=== PATIENT | male | born 1985 | race Two or more races ===

== ENCOUNTER 2016-06-11 08:04 | Emergency (ER) | payer BC ==
[2016-06-11 08:16] VITALS: BP 95/48
--- NOTE | 2016-06-11 08:34 | UC ---
Respiratory Complaint HPI - HPI Summary HPI Summary: ONSET OF FEVER, BODY ACHES (MOSTLY IN NECK AND BACK), STINSON AND FATIGUE LAST NIGHT. MILD COUGH AND ST. - History of Current Complaint Chief Complaint: UCGeneralIllness Stated Complaint: URI Time Seen by Provider: 06/11/16 08:24 Hx Obtained From: Patient Onset/Duration: Gradual Onset, Lasting Hours, Still Present Timing: Constant Severity Initially: Moderate Severity Currently: Moderate Pain Intensity: 7 Pain Scale Used: 0-10 Numeric Character: Cough: Nonproductive - MILD Aggravating Factors: Nothing Alleviating Factors: Nothing Associated Signs And Symptoms: Positive: Fever, Chills. Negative: Dyspnea, Pleuritic Chest Pain, Wheezing, Hemoptysis, Dizziness, Calf Pain, Calf Swelling - Allergies/Home Medications Allergies/Adverse Reactions: Allergies Allergy/AdvReac Type Severity Reaction Status Date / Time No Known Allergies Allergy Verified 07/20/15 20:47 Home Medications: Home Medications Guanfacine HCl (Adhd) [Guanfacine ER] 1 mg PO BEDTIME 06/11/16 [History Confirmed 06/11/16] LORazepam TAB(*) [Ativan 1 MG TAB (*)] 1 mg PO BEDTIME 06/11/16 [History Confirmed 06/11/16] PMH/Surg Hx/FS Hx/Imm Hx Endocrine History Of: Denies: Diabetes, Thyroid Disease, Hyperthyroidism, Hypothyroidism, Dyslipidemia Cardiovascular History Of: Denies: Cardiac Disorders, Hypertension, Pacemaker/ICD, Myocardial Infarction , Congestive Heart Failure, Atrial Fibrillation, Deep Vein Thrombosis, Bleeding Disorders Respiratory History Of: Reports: Asthma - in high school Denies: COPD, Bronchitis, Pneumonia, Pulmonary Embolism GI/ History Of: Denies: Gastroesophageal Reflux, Ulcer, Gastrointestinal Bleed, Gall Bladder Disease, Kidney Stones, Diverticulitis, Renal Disease, Urosepsis Neurological History Of: Denies: TIA, CVA, Dementia, Seizures, Migraine Psychological History Of: Reports: Anxiety Denies: Depression, Bipolar Disorder, Schizophrenia, Post Traumatic Stress Disorder Cancer History Of: Denies: Lung Cancer, Colorectal Cancer, Breast Cancer, Prostate Cancer, Cervical Cancer Other History Of: Negative For: HIV, Hepatitis B, Hepatitis C - Surgical History Surgical History: Yes Surgery Procedure, Year, and Place: wisdom teeth extraction - Family History Known Family History: Positive: Cardiac Disease - Social History Alcohol Use: None Substance Use Type: None Smoking Status (MU): Never Smoked Tobacco Review of Systems Constitutional: Fever, Chills, Fatigue ENT: Sore Throat, Ear Ache Respiratory: Cough Cardiovascular: Negative Gastrointestinal: Negative Musculoskeletal: Myalgia Neurological: Headache All Other Systems Reviewed And Are Negative: Yes Physical Exam Triage Information Reviewed: Yes Appearance: No Pain Distress, Well-Nourished, Ill-Appearing - MILD Vital Signs: Initial Vital Signs Temp 98.3 F 06/11/16 08:09 Pulse 75 06/11/16 08:09 Resp 18 06/11/16 08:09 BP 95/48 06/11/16 08:09 Pulse Ox 95 06/11/16 08:09 Vital Signs Reviewed: Yes Eyes: Positive: Conjunctiva Clear ENT: Positive: Hearing grossly normal, Pharyngeal erythema, TMs normal, Tonsillar exudate. Negative: Tonsillar swelling Neck: Positive: Supple, Nontender, No Lymphadenopathy Respiratory Exam: Normal Cardiovascular Exam: Normal Abdomen Description: Positive: Nontender, Soft Musculoskeletal: Positive: No Edema Neurological: Positive: Alert, Other: - NEG BRUDZINSKI, NEG KERNIG Psychological: Positive: Age Appropriate Behavior Skin: Negative: rashes UC Diagnostic Evaluation - Laboratory O2 Sat by Pulse Oximetry: 95 Diagnostic Studies Comment: RAPID STREP NEGATIVE. RAPID FLU NEGATIVE Respiratory Course/Dx - Differential Dx/Diagnosis Provider Diagnoses: ACUTE VIRAL SYNDROME Discharge - Discharge Plan Condition: Stable Disposition: HOME Patient Education Materials: Viral Syndrome (ED) Referrals: Russ Sarabia MD [Primary Care Provider] - If Needed Additional Instructions: RAPID STREP NEGATIVE. RAPID FLU NEGATIVE. CONSERVATIVE MANAGEMENT. REST, HYDRATE , OTC MEDS NEEDED. IBUPROFEN MAX DOSE: 600MG (3 TABS) EVERY 6 HRS OR 800MG (4 TABS) EVERY 8 HRS OR NAPROXEN MAX DOSE: 440MG (2 TABS) EVERY 12 HRS TYLENOL MAX DOSE: 1000MG (2 EXTRA STRENGTH TABS) EVERY 8 HRS FOLLOW-UP HERE OR WITH PCP IF NOT IMPROVING EXPECTED OVER THE NEXT WEEK OR SO.
== END 2016-06-11 09:06 | disposition home or self-care (01) ==
LOC: UCEAST 08:04
DX: B34.9 Viral infection, unspecified (principal); J45.909 Unspecified asthma, uncomplicated; F41.9 Anxiety disorder, unspecified
CPT/HCPCS: 87502; 87651; 99211; G0463

== ENCOUNTER 2017-02-18 10:59 | Day surgery (SDC) | payer BC ==
[~2017-02-18 10:59] MED LIST: Buffered Lidocaine 0.9% SYRIN* 5 ML/SYR SYRINGE INTRADERM ONE; Famotidine IV* 10 MG/ML 2 ML (20 mg) IV ONE
[2017-02-18] MEDS ORDERED: Famotidine IV* 10 MG/ML 2 ML (20 mg) ONE (11:10)
[2017-02-18] MEDS ORDERED: Buffered Lidocaine 0.9% SYRIN* 5 ML/SYR SYRINGE ONE (11:10)
[2017-02-18] MEDS ORDERED: Lidocaine 2% PF * 5 ML VIAL ONE (12:49)
[2017-02-18] MEDS ORDERED: Dexamethasone IV* 4 MG/ML 1 ML (4 MG) ONE (12:49)
[2017-02-18] MEDS ORDERED: Propofol* 10 MG/ML 20 ML BTL IV PUSH ONE (12:49)
[2017-02-18] MEDS ORDERED: Ondansetron INJ* 2 MG/ML VIAL ONE (12:49)
[2017-02-18] MEDS ORDERED: Midazolam* 1 MG/ML 10 ML VIAL (10 MG) ONE (12:50)
[2017-02-18] MEDS ORDERED: fentaNYL* 50 MCG/ML 2 ML VIAL (100 MCG VIAL) ONE (12:50)
[2017-02-18] MEDS ORDERED: Ondansetron INJ* 2 MG/ML VIAL IV PRN (14:07)
[2017-02-18] MEDS ORDERED: fentaNYL* 50 MCG/ML 2 ML VIAL (100 MCG VIAL) IV PRN (14:07)
[2017-02-18 14:33] VITALS: BP 136/85
--- NOTE | 2017-02-19 | OP ---
DATE OF OPERATION: 02/18/17 - SDS DATE OF : 83 SURGEON: Sav Tinsley MD ANESTHESIOLOGIST: Washington Nuñez MD ANESTHESIA: General PRE-OP DIAGNOSIS: Chronic tonsillitis. POST-OP DIAGNOSIS: Chronic tonsillitis. OPERATIVE PROCEDURE: Tonsillectomy under general endotracheal anesthesia. COMPLICATIONS: None. DISPOSITION: Good. SPECIMENS: Left and right tonsils. BLOOD LOSS: Minimal. DESCRIPTION OF PROCEDURE: The patient was taken to the operating room, placed in the supine position on the operating room table. General anesthesia was induced and she was orotracheally intubated, turned and draped for the tonsillectomy. Shalini-Moy mouth gag was inserted, retraction was applied, it was suspended from the Booker stand. Right tonsil was grasped, manual traction was applied. Using Bovie cautery, it was dissected along its capsule, removing it from the underlying pharyngeal musculature. Left tonsil was grasped, manual traction was applied. Again using Bovie cautery, it was dissected along its capsule, removing it from the underlying pharyngeal musculature. When both tonsils were removed, hemostasis was ensured in both tonsillar fossae using suction cautery. After this was achieved, orogastric tube was inserted into the stomach and stomach contents were suctioned. Shalini-Moy mouth gag and red rubber catheter were released and removed. The patient tolerated this procedure well, no complications, transferred to the recovery room in stable condition. [id number]/CPS #: [id number] MTDD
== END 2017-02-18 15:29 | disposition home or self-care (01) ==
LOC: OR 10:59
PROVIDERS: ATTEND Otolaryngology
DX: J03.01 Acute recurrent streptococcal tonsillitis (principal); G47.00 Insomnia, unspecified; F95.9 Tic disorder, unspecified
CPT/HCPCS: 88304; J1100; J2250; J2405; J2704; J3010

== ENCOUNTER 2018-07-14 17:02 | Emergency (ER) | payer BC ==
[2018-07-14 17:58] VITALS: BP 127/77
--- NOTE | 2018-07-14 18:26 | UC ---
Nausea/Vomiting/Diarrhea HPI - HPI Summary HPI Summary: 32-year-old male comes in with a chief complaint of nausea diarrhea abdominal pain and headache. Patient woke this morning with several episodes of diarrhea that's all watery. Has not seen any blood in the diarrhea. He also is nauseous is also vomited a couple times but he has not vomited. He has been able to keep some liquids down. No recent antibiotics. Later on during the day started developing diffuse abdominal pain had a headache. He's had some chills. No fever measured. - History of Current Complaint Chief Complaint: UCGI Stated Complaint: FLU LIKE SYMPTOMS Time Seen by Provider: 07/14/18 18:05 Pain Intensity: 5 - Allergies/Home Medications Allergies/Adverse Reactions: Allergies Allergy/AdvReac Type Severity Reaction Status Date / Time No Known Allergies Allergy Verified 07/14/18 17:58 Home Medications: Home Medications Kavinace Ultra Pm 1 tab PO BEDTIME 07/14/18 [History Confirmed 07/14/18] PMH/Surg Hx/FS Hx/Imm Hx Previously Healthy: Yes Other History Of: Negative For: HIV, Hepatitis B, Hepatitis C - Surgical History Surgical History: None Surgery Procedure, Year, and Place: [place] teeth extraction age 15 - [place] - Family History Known Family History: Positive: Cardiac Disease - Social History Alcohol Use: None Substance Use Type: Marijuana Substance Use Comment - Amount & Last Used: not in the last month Smoking Status (MU): Heavy Every Day Tobacco Smoker Type: Smokeless Tobacco Amount Used/How Often: 1 pouch per day Length of Time of Smoking/Using Tobacco: since age 17 Have You Smoked in the Last Year: No Review of Systems All Other Systems Reviewed And Are Negative: Yes Constitutional: Positive: Chills Skin: Positive: Negative Eyes: Positive: Negative ENT: Positive: Negative Respiratory: Positive: Negative Cardiovascular: Positive: Negative Gastrointestinal: Positive: Abdominal Pain, Diarrhea, Nausea Motor: Positive: Negative Neurovascular: Positive: Negative Musculoskeletal: Positive: Myalgia Neurological: Positive: Headache Psychological: Positive: Negative Is Patient Immunocompromised?: No Physical Exam Triage Information Reviewed: Yes Appearance: No Pain Distress, Well-Nourished, Ill-Appearing - mild Vital Signs: Initial Vital Signs Temp 98.2 F 07/14/18 17:53 Pulse 78 07/14/18 17:53 Resp 15 07/14/18 17:53 BP 127/77 07/14/18 17:53 Pulse Ox 100 07/14/18 17:53 Vital Signs Reviewed: Yes Eye Exam: Normal Eyes: Positive: Conjunctiva Clear Neck: Positive: Supple Respiratory: Positive: Lungs clear, Normal breath sounds, No respiratory distress Cardiovascular: Positive: RRR Abdomen Description: Positive: Soft, Other: - diffuse mild tenderness to palpation Bowel Sounds: Positive: Present Musculoskeletal Exam: Normal Musculoskeletal: Positive: Strength Intact, ROM Intact Neurological Exam: Normal Neurological: Positive: Alert, Muscle Tone Normal Psychological Exam: Normal Psychological: Positive: Age Appropriate Behavior Skin Exam: Normal Naus/Vom/Diarrhea Course/Dx - Course Course Of Treatment: Patient's abdomen is mildly diffusely tender to palpation. No focal area of tenderness. Positive bowel sounds. Patient's nauseous but has not vomited. Denies any blood in the stool. No fever here in clinic. No recent antibiotics. At this time symptomatic treatment with Zofran for nausea and work on staying hydrated. Rest. Stool sample kit sent home with the patient. I talked to the patient if things got worse he needs go the emergency department for further evaluation care. - Differential Dx/Diagnosis Provider Diagnosis: Nausea, Diarrhea, Abdominal pain, Headache Condition At Discharge: Stable Discharge - Sign-Out/Discharge Documenting (check all that apply): Patient Departure All imaging exams completed and their final reports reviewed: No Studies - Discharge Plan Condition: Stable Disposition: HOME Prescriptions: Ondansetron ODT TAB* [Zofran 4 MG Odt TAB*] 4 mg PO Q6H PRN #15 tab.odt PRN Reason: Nausea Patient Education Materials: Acute Headache (ED), Acute Nausea and Vomiting (ED ), Acute Diarrhea (ED), Abdominal Pain (ED) Forms: *Work Release Referrals: Russ Sarabia MD [Primary Care Provider] - Additional Instructions: FOLLOW UP WITH YOUR DOCTOR IF NOT COMPLETELY IMPROVED. GO TO THE EMERGENCY DEPARTMENT IF YOUR CONDITION WORSENS; PAIN, FEVER, YOU FEEL ILL, BLOOD IN YOUR STOOL, YOU FEEL LIKE PASSING OUT OR ANY QUESTIONS OR CONCERNS. - Billing Disposition and Condition Condition: STABLE Disposition: Home
== END 2018-07-14 18:38 | disposition home or self-care (01) ==
LOC: UCCORT 17:02
DX: R19.7 Diarrhea, unspecified (principal); R11.0 Nausea; R51 Headache; R10.9 Unspecified abdominal pain; F17.290 Nicotine dependence, other tobacco product, uncomplicated
CPT/HCPCS: 99212; G0463

== ENCOUNTER 2019-03-21 12:25 | Emergency (ER) | payer BC, OTHER ==
[2019-03-21 13:21] VITALS: BP 158/69
--- NOTE | 2019-03-21 14:06 | UC ---
FLU HPI - HPI Summary HPI Summary: 33-year-old male presents with complaints of sudden onset of general malaise, body aches, nasal congestion, sinus pressure, and a nonproductive cough. No measured fever however has had chills. Did not receive his flu vaccination this season. Denies ear pain, sore throat, chest pain, palpitations, shortness of breath, abdominal pain, nausea, or vomiting. - History of Current Complaint Chief Complaint: UCRespiratory Stated Complaint: SINUS CONCERN Time Seen by Provider: 03/21/19 13:54 Hx Obtained From: Patient Pain Intensity: 0 - Allergy/Home Medications Allergies/Adverse Reactions: Allergies Allergy/AdvReac Type Severity Reaction Status Date / Time No Known Allergies Allergy Verified 01/03/19 13:47 Home Medications: Home Medications Melatonin 3 mg PO DAILY 03/21/19 [History Confirmed 03/21/19] PMH/Surg Hx/FS Hx/Imm Hx Previously Healthy: Yes - Denies significant PMH Other History Of: Negative For: HIV, Hepatitis B, Hepatitis C - Surgical History Surgical History: None Surgery Procedure, Year, and Place: [facility] teeth extraction age 15 - [facility]. 02/19/2018 TONSILS REMOVED - Family History Known Family History: Positive: Cardiac Disease - Social History Occupation: Employed Full-time Lives: Alone Alcohol Use: None Substance Use Type: Marijuana Substance Use Comment - Amount & Last Used: not in the last month Smoking Status (MU): Heavy Every Day Tobacco Smoker Type: Smokeless Tobacco Amount Used/How Often: 1 pouch per day Length of Time of Smoking/Using Tobacco: since age 17 Have You Smoked in the Last Year: No Review of Systems All Other Systems Reviewed And Are Negative: Yes Constitutional: Positive: Fever, Chills, Fatigue Eyes: Negative: Drainage, Eye Redness ENT: Positive: Nasal Discharge, Sinus Congestion. Negative: Sore Throat, Ear Ache Respiratory: Positive: Cough. Negative: Shortness Of Breath Cardiovascular: Negative: Palpitations, Chest Pain Gastrointestinal: Negative: Abdominal Pain, Vomiting, Diarrhea, Nausea Genitourinary: Positive: Negative Musculoskeletal: Positive: Myalgia Is Patient Immunocompromised?: No Physical Exam - Summary Physical Exam Summary: GENERAL APPEARANCE: Well developed, well nourished, alert and cooperative, and appears to be in no acute distress. EYES: Conjunctiva clear. No drainage. EARS: External auditory canals and tympanic membranes clear, hearing grossly intact. NOSE: Moderate nasal discharge. Clear discharge. THROAT: Pharynx normal. Tonsils surgically absent. Uvula midline. NECK: Neck supple, non-tender without lymphadenopathy. CARDIAC: Normal S1 and S2. No S3, S4 or murmurs. Rhythm is regular. There is no peripheral edema, cyanosis or pallor. Extremities are warm and well perfused. Capillary refill is less than 2 seconds. Peripheral pulses intact. LUNGS: Clear to auscultation without rales, rhonchi, wheezing or diminished breath sounds. Nonproductive cough. ABDOMEN: Positive bowel sounds. Soft, nondistended, nontender. No guarding or rebound. No masses or hepatosplenomegally. MUSKULOSKELETAL: ROM intact to all extremities. No joint erythema or tenderness. Normal muscular development. Normal gait. SKIN: Skin normal color, texture and turgor with no lesions or eruptions. Triage Information Reviewed: Yes Vital Signs: Initial Vital Signs Temp 100.1 F 03/21/19 13:17 Pulse 103 03/21/19 13:17 Resp 20 03/21/19 13:17 BP 158/69 03/21/19 13:17 Pulse Ox 100 03/21/19 13:17 Vital Signs Reviewed: Yes Flu Course/Dx - Course Course Of Treatment: 33-year-old male presents with complaints of sudden onset of general malaise, body aches, nasal congestion, sinus pressure, and a nonproductive cough. No measured fever however has had chills. Did not receive his flu vaccination this season. Denies ear pain, sore throat, chest pain, palpitations, shortness of breath, abdominal pain, nausea, or vomiting. Patient had a mildly elevated temperature of 100.1 F. He was mildly tachycardic and hypertensive otherwise VS stable. Patient had moderate nasal congestion, clear nasal discharge, normal TMs, normal pharynx, surgically absent tonsils, no cervical lymphadenopathy, clear bilateral breath sounds, nonproductive cough, and otherwise unremarkable exam. Rapid flu test was negative. Recommending symptomatic treatment for a viral upper respiratory infection. He is to follow-up with his primary care provider in 5-7 days if symptoms are not improving. Anticipatory guidance and warning symptoms reviewed with the patient. Verbalizes understanding and agrees with plan of care. - Differential Dx/Diagnosis Differential Diagnosis/HQI/PQRI: Bronchitis, Influenza, Pneumonia, Upper Respiratory Infection Provider Diagnosis: Viral URI with cough Discharge ED - Sign-Out/Discharge Documenting (check all that apply): Patient Departure All imaging exams completed and their final reports reviewed: No Studies - Discharge Plan Condition: Stable Disposition: HOME Prescriptions: Benzonatate CAP* [Tessalon 100 MG CAP*] 100 mg PO TID PRN #21 cap PRN Reason: Cough Patient Education Materials: Upper Respiratory Infection (ED) Referrals: Russ Sarabia MD [Primary Care Provider] - 5 Days Additional Instructions: Your flu test in the clinic today was negative for influenza. You likely have a viral upper respiratory infection. Viral infections do not respond to antibiotics and are limited to the treatment of symptoms. Viral infections typically run their course in 7-10 days. Drink plenty of fluids to avoid dehydration especially if you are running any fever. Use a saline rinse kit such as Neti Pot or NeilMed at least twice a day to help thin secretions and promote drainage of the sinuses. Use over the counter fluticasone (Flonase) nasal spray 2 sprays each nostril once daily. Use an over the counter decongestant such as Sudafed according to directions to help with the congestion. Take over the counter acetaminophen (Tylenol) or ibuprofen (Advil, Motrin) according to directions as needed for pain or fever. Take Tessalon Perles 1 capsule every 8 hours as needed for cough. Follow up with your primary care provider in 5-7 days if symptoms persist. Seek immediate medical attention in the emergency room if you have fever greater than 100.5 F despite taking acetaminophen or ibuprofen, have chest pain , difficulty breathing, are unable to swallow, or have any worsening of symptoms. - Billing Disposition and Condition Condition: STABLE Disposition: Home - Attestation Statements Provider Attestation: This patient was not seen by me. I was available for consult. Chart reviewed MIN[facility]
[2019-03-23 10:16] LABS: Influenza A Molecular Negative (Negative); Influenza B Molecular Negative (Negative)
== END 2019-03-21 14:48 | disposition home or self-care (01) ==
LOC: UCCORT 12:25
DX: J06.9 Acute upper respiratory infection, unspecified (principal); R05 Cough; F17.290 Nicotine dependence, other tobacco product, uncomplicated
CPT/HCPCS: 99212; G0463